=== PATIENT | female | born 1930 | race Caucasian/White ===

== ENCOUNTER 2017-11-13 12:54 | Emergency (ER) | payer MEDICARE, OTHER | END 2017-11-13 16:32 | disposition home or self-care (01) | LOC: D.ER 12:54 | DX: S52.502A Unspecified fracture of the lower end of left radius, initial encounter for closed fracture (principal); W19.XXXA Unspecified fall, initial encounter; Y93.89 Activity, other specified; Y92.019 Unspecified place in single-family (private) house as the place of occurrence of the external cause; S01.81XA Laceration without foreign body of other part of head, initial encounter; I10 Essential (primary) hypertension; E07.9 Disorder of thyroid, unspecified ==

== ENCOUNTER → 2019-01-08 11:41 | Outpatient (CLI) | payer MEDICARE, OTHER | END | disposition home or self-care (01) | LOC: D.RAD 11:41 | PROVIDERS: ATTEND Family Medicine | DX: R05 Cough (principal) ==